=== PATIENT | male | born 1950 | race Caucasian/White ===

== ENCOUNTER → 2023-09-09 | Day surgery (SDC) | payer MEDICARE, OTHER ==
[~2023-09-09] MED LIST: Lidocaine 1% PF 5 ML VIAL ONE; Sodium Bicarbonate 0.5 MEQ/ML SDV 10 ML ONE; fentaNYL 50 mcg/mL 1 mL Vial ONE
[2023-09-09 09:04] LABS: #Basophils 0.1 thou/uL (0.0-0.2); #Eosinphils 0.3 thou/uL (0.0-0.7); #Monocytes 0.6 thou/uL (0.11-0.59); #Neutrophils 3.5 thou/uL (1.40-6.50); %Basophils 0.8 % (0.0-1.0); %Eosinophils 5.5 % (0.0-10.0); %Monocytes 10.1 % (0.0-10.0); %Neutrophils 57.3 % (42.0-75.0); Hematocrit 40.2 % (42.0-52.0); Mean Corpuscular HGB CONC 32.3 g/dL (32.0-36.0); Mean Corpuscular Hemoglobin 32.1 pg (27.0-31.0); Mean Corpuscular Volume 99.3 fl (78.0-98.0); Mean Platelet Volume 10.4 fL (7.4-10.4); Platelet Count 145 10x3/uL (130-400); RBC Distribution Width 13.5 % (11.5-14.5); Red Blood Cell (RBC) Count 4.05 mill/uL (4.70-6.10)
[2023-09-09 09:37] LABS: INR-International Normal Ratio 1.1; Prothrombin Time 14.2 sec (12.0-14.7)
[2023-09-09 09:38] LABS: PTT 27.1 sec (22.9-36.1)
== END ==
LOC: CT 08:22
PROVIDERS: ATTEND Internal Medicine Hematology & Oncology
PROC: 07DR3ZX Extraction of Iliac Bone Marrow, Percutaneous Approach, Diagnostic (ICD-10-PCS; principal; 2023-09-09)
DX: C90.00 Multiple myeloma not having achieved remission (principal); E11.9 Type 2 diabetes mellitus without complications; G20.A1 Parkinson's disease without dyskinesia, without mention of fluctuations; M19.90 Unspecified osteoarthritis, unspecified site; F41.9 Anxiety disorder, unspecified; F32.A Depression, unspecified; E07.9 Disorder of thyroid, unspecified; Z86.73 Personal history of transient ischemic attack (TIA), and cerebral infarction without residual deficits; Z98.890 Other specified postprocedural states; Z88.8 Allergy status to other drugs, medicaments and biological substances; Z79.899 Other long term (current) drug therapy; Z79.4 Long term (current) use of insulin
CPT/HCPCS: 20225; 77012; 85025; 85097; 85610; 85730; J3010; 88184; 88185; 88189; 88237; 88264; 88280; 88305; 88311; 88313; 88341; 88342; 88365

== ENCOUNTER → 2023-09-11 | Outpatient (CLI) | payer MEDICARE, OTHER | LOC: PET 10:15 | PROVIDERS: ATTEND Internal Medicine Hematology & Oncology | DX: C90.00 Multiple myeloma not having achieved remission (principal) | CPT/HCPCS: 78816; A9552 ==

== ENCOUNTER 2024-08-16 17:34 | Inpatient (IN) | payer MEDICARE, OTHER ==
[2024-08-16 18:21] LABS: #Basophils 0.03 10x3/uL (0.0-0.2); %Basophils 0.2 % (0.0-1.0); %Eosinophils 0.6 % (0.0-10.0); %Lymphocytes 7.8 % (21.0-51.0); %Monocytes 9.6 % (0.0-10.0); %Neutrophils 81.1 % (42.0-75.0); Hematocrit 34.8 % (42.0-52.0); Hemoglobin 11.7 g/dL (14.0-18.0); Mean Corpuscular HGB CONC 33.6 g/dL (32.0-36.0); Mean Corpuscular Hemoglobin 31.5 pg (27.0-31.0); Mean Corpuscular Volume 93.5 fL (78.0-98.0); Mean Platelet Volume 10.6 fL (7.4-10.4); Platelet Count 133 10x3/uL (130-400); Red Blood Cell (RBC) Count 3.72 mill/uL (4.70-6.10)
[2024-08-16] MEDS ORDERED: Acetaminophen 500 MG TAB ONE (18:29)
[2024-08-16 18:31] LABS: ALT (SGPT) 13 U/L (8-55); AST (SGOT) 11 U/L (5-34); Albumin 2.5 g/dL (3.4-4.8); Alkaline Phosphatase 44 U/L (40-110); Anion Gap 16 mmol/L (10-20); BUN (Urea Nitrogen) 29 mg/dL (8.4-25.7); Bilirubin, Total 0.6 mg/dL (0.2-1.2); Calc. Creatinine Clearance 0 mL/min (70-130); Calcium 9.1 mg/dL (7.8-10.44); Carbon Dioxide 22 mmol/L (23-31); Chloride 101 mmol/L (98-107); Estimated GFR 60; Globulin 7.1 g/dL (2.4-3.5); Glucose 225 mg/dL (83-110); Potassium 4.1 mmol/L (3.5-5.1); Protein, Total 9.6 g/dL (5.8-8.1); Sodium 135 mmol/L (136-145)
[2024-08-16 18:37] LABS: Troponin I 0.027 ng/mL (< 0.028)
[2024-08-16 22:37] LABS: Bacteria/HPF Rare-Few HPF (None Seen); Bilirubin Negative (Negative); Blood, Urine 2+ (Negative); CAUTI Indications for Culture Dysuria,urgency,freq; Clarity Turbid (Clear); Glucose, Urine (Dipstick) Greater than 1000 mg/dL (Negative); Ketone, Urine Negative (Negative); Leukocyte 250 Leu/uL (Negative); Nitrite 2+ (Negative); Protein, Urine (Dipstick) 30 mg/dL (Neg-Trace); Specific Gravity, Urine 1.033 (1.002-1.036); Squamous Epithelial 0-3 HPF (0-3); Urobilinogen Normal mg/dL (Less than 2); WBC/HPF Greater than 50 HPF (0-3); pH, Urine 5.5 (5.0-9.0)
[2024-08-16 22:37] LABS: Troponin I 0.022 ng/mL (< 0.028)
[2024-08-16 22:40] LABS: Urine Culture Reflex Yes Yes
[2024-08-16] MEDS ORDERED: cefTRIAXone (ROCEPHIN) 2 GM VIAL ONE (22:46)
[2024-08-16] MEDS ORDERED: Sodium Chloride 0.9% 100 ML ONE (22:47)
[2024-08-16 23:43] VITALS: BMI 30.6
[2024-08-17] MEDS ORDERED: Ondansetron ODT 4 MG TAB PO PRN (01:08)
[2024-08-17] MEDS ORDERED: Glucagon 1 MG/ML KIT IM PRN (01:24)
[2024-08-17] MEDS ORDERED: Dextrose 50% Abboject 50 ML SYRINGE SLOW IVP PRN (01:24)
[2024-08-17] MEDS ORDERED: Dextrose 5% in Water 1,000 ML IV PRN (01:24)
[2024-08-17] MEDS: Lactated Ringer's 1,000 ML IV SCH (01:51)
[2024-08-17 05:48] LABS: Anion Gap 14 mmol/L (10-20); BUN (Urea Nitrogen) 23 mg/dL (8.4-25.7); Calc. Creatinine Clearance 98 mL/min (70-130); Calcium 8.9 mg/dL (7.8-10.44); Carbon Dioxide 23 mmol/L (23-31); Chloride 106 mmol/L (98-107); Estimated GFR 89; Glucose 113 mg/dL (83-110); Potassium 3.7 mmol/L (3.5-5.1); Sodium 139 mmol/L (136-145)
[2024-08-17 05:49] LABS: #Basophils 0.03 10x3/uL (0.0-0.2); %Basophils 0.3 % (0.0-1.0); %Eosinophils 1.7 % (0.0-10.0); %Lymphocytes 8.1 % (21.0-51.0); %Monocytes 8.1 % (0.0-10.0); %Neutrophils 81.2 % (42.0-75.0); Hematocrit 35.5 % (42.0-52.0); Hemoglobin 11.6 g/dL (14.0-18.0); Mean Corpuscular HGB CONC 32.7 g/dL (32.0-36.0); Mean Corpuscular Hemoglobin 30.9 pg (27.0-31.0); Mean Corpuscular Volume 94.4 fL (78.0-98.0); Mean Platelet Volume 10.9 fL (7.4-10.4); Platelet Count 117 10x3/uL (130-400); Red Blood Cell (RBC) Count 3.76 mill/uL (4.70-6.10)
[2024-08-17] MEDS: Levothyroxine Sodium 100 MCG TAB PO SCH (06:20)
[2024-08-17] MEDS: Acetaminophen 325 MG TAB PO PRN (06:20)
[2024-08-17 06:39] LABS: Band 8 % (5-11); Eosinophils 1 % (0-10); Lymphocytes 5 % (21-51); Macrocytosis SLIGHT = 6-15 cells HPF (0-5); Monocytes 4 % (0-10); Neutrophil 82 % (42-75); Platelet Adequacy Comment Platelets Decreased; Polychromasia SLIGHT = 2-3 cells HPF (0-2); Smudge Cells 5.9 %
[2024-08-17] MEDS: Enoxaparin 40 MG (0.4 mL) SYRINGE SC SCH (09:10)
[2024-08-17] MEDS: Isosorbide Mononitrate 30 MG ER.TAB PO SCH (09:10)
[2024-08-17] MEDS: Insulin Glargine 30 UNITS/0.3 ML VIAL SC SCH (09:10)
[2024-08-17] MEDS: Tamsulosin HCl 0.4 MG CAP PO SCH (09:10)
[2024-08-17] MEDS: Clopidogrel Bisulfate 75 MG TAB PO SCH (09:10)
[2024-08-17] MEDS: Carvedilol 6.25 MG TAB PO SCH (09:10)
[2024-08-17] MEDS: FLUoxetine HCl 20 MG CAP PO SCH (21:29)
[2024-08-17] MEDS: Rosuvastatin 20 MG TAB PO SCH (21:29)
[2024-08-17] MEDS: cefTRIAXone\\ROCEPHIN 2 GM in Sodium Chloride 0.9% 100 ML IVPB SCH (21:30)
[2024-08-17] MEDS: Insulin Lispro 100 UNIT/ML 10 ML VIAL SC PRN (21:31)
[2024-08-18 07:04] LABS: #Basophils 0.03 10x3/uL (0.0-0.2); %Basophils 0.5 % (0.0-1.0); %Eosinophils 1.1 % (0.0-10.0); %Lymphocytes 11.3 % (21.0-51.0); %Monocytes 14.2 % (0.0-10.0); %Neutrophils 71.8 % (42.0-75.0); Hemoglobin 11.3 g/dL (14.0-18.0); Mean Corpuscular HGB CONC 33.2 g/dL (32.0-36.0); Mean Corpuscular Hemoglobin 30.5 pg (27.0-31.0); Mean Corpuscular Volume 91.6 fL (78.0-98.0); Platelet Count 120 10x3/uL (130-400); Red Blood Cell (RBC) Count 3.71 mill/uL (4.70-6.10)
[2024-08-18 07:12] LABS: ALT (SGPT) 14 U/L (8-55); AST (SGOT) 15 U/L (5-34); Albumin 2.4 g/dL (3.4-4.8); Alkaline Phosphatase 40 U/L (40-110); Anion Gap 17 mmol/L (10-20); BUN (Urea Nitrogen) 15 mg/dL (8.4-25.7); Bilirubin, Total 0.4 mg/dL (0.2-1.2); Calc. Creatinine Clearance 117 mL/min (70-130); Calcium 8.8 mg/dL (7.8-10.44); Carbon Dioxide 23 mmol/L (23-31); Chloride 103 mmol/L (98-107); Estimated GFR 93; Globulin 7.2 g/dL (2.4-3.5); Glucose 84 mg/dL (83-110); Potassium 3.8 mmol/L (3.5-5.1); Protein, Total 9.6 g/dL (5.8-8.1); Sodium 139 mmol/L (136-145)
[2024-08-19] MEDS ORDERED: Sodium Chloride 0.65% Nasal 44 ML BOT EA NARE PRN (01:45)
[2024-08-19 08:30] LABS: #Basophils Less than 0.03 10x3/uL (0.0-0.2); %Basophils 0.2 % (0.0-1.0); %Eosinophils 1.1 % (0.0-10.0); %Lymphocytes 8.9 % (21.0-51.0); %Monocytes 11.5 % (0.0-10.0); %Neutrophils 76.6 % (42.0-75.0); Hematocrit 34.6 % (42.0-52.0); Hemoglobin 11.4 g/dL (14.0-18.0); Mean Corpuscular HGB CONC 33.2 g/dL (32.0-36.0); Mean Corpuscular Hemoglobin 30.2 pg (27.0-31.0); Mean Corpuscular Volume 90.8 fL (78.0-98.0); Mean Platelet Volume 10.2 fL (7.4-10.4); Platelet Count 131 10x3/uL (130-400); RBC Distribution Width 13.8 % (11.5-14.5); Red Blood Cell (RBC) Count 3.71 mill/uL (4.70-6.10)
[2024-08-19 08:37] LABS: ALT (SGPT) 15 U/L (8-55); AST (SGOT) 17 U/L (5-34); Albumin 2.3 g/dL (3.4-4.8); Alkaline Phosphatase 43 U/L (40-110); Anion Gap 14 mmol/L (10-20); BUN (Urea Nitrogen) 18 mg/dL (8.4-25.7); Bilirubin, Total 0.3 mg/dL (0.2-1.2); Calc. Creatinine Clearance 111 mL/min (70-130); Calcium 8.8 mg/dL (7.8-10.44); Carbon Dioxide 23 mmol/L (23-31); Chloride 102 mmol/L (98-107); Estimated GFR 91; Globulin 7.5 g/dL (2.4-3.5); Glucose 167 mg/dL (83-110); Potassium 3.4 mmol/L (3.5-5.1); Protein, Total 9.8 g/dL (5.8-8.1); Sodium 136 mmol/L (136-145)
[2024-08-19] MEDS: Saccharomyces boulardii 250 MG CAP PO SCH (11:55)
[2024-08-20 04:28] LABS: #Basophils Less than 0.03 10x3/uL (0.0-0.2); %Basophils 0.4 % (0.0-1.0); %Eosinophils 2.6 % (0.0-10.0); %Lymphocytes 16.7 % (21.0-51.0); %Monocytes 16.9 % (0.0-10.0); Hematocrit 33.4 % (42.0-52.0); Hemoglobin 10.9 g/dL (14.0-18.0); Mean Corpuscular HGB CONC 32.6 g/dL (32.0-36.0); Mean Corpuscular Hemoglobin 30.4 pg (27.0-31.0); Mean Platelet Volume 10.5 fL (7.4-10.4); Platelet Count 135 10x3/uL (130-400); RBC Distribution Width 13.8 % (11.5-14.5); Red Blood Cell (RBC) Count 3.59 mill/uL (4.70-6.10)
[2024-08-20 05:02] LABS: ALT (SGPT) 19 U/L (8-55); AST (SGOT) 19 U/L (5-34); Albumin 2.1 g/dL (3.4-4.8); Alkaline Phosphatase 37 U/L (40-110); Anion Gap 13 mmol/L (10-20); BUN (Urea Nitrogen) 21 mg/dL (8.4-25.7); Bilirubin, Total 0.2 mg/dL (0.2-1.2); Calc. Creatinine Clearance 104 mL/min (70-130); Calcium 8.6 mg/dL (7.8-10.44); Carbon Dioxide 26 mmol/L (23-31); Chloride 101 mmol/L (98-107); Estimated GFR 89; Globulin 7.1 g/dL (2.4-3.5); Glucose 132 mg/dL (83-110); Potassium 3.4 mmol/L (3.5-5.1); Protein, Total 9.2 g/dL (5.8-8.1); Sodium 137 mmol/L (136-145)
[2024-08-20] MEDS: Potassium Chloride 20 MEQ TAB PO SCH (08:59)
[2024-08-20 11:54] VITALS: TEMP 98.3
[2024-08-20 13:33] VITALS: BP 147/72
== END 2024-08-20 14:12 | DRG 841 ==
LOC: ERS 17:34 → 2SE 21:47 → OBSVTOIN 08-17 16:11
PROVIDERS: ADMIT Family Medicine; ATTEND Family Medicine
DX: C90.00 Multiple myeloma not having achieved remission (principal); I50.22 Chronic systolic (congestive) heart failure; N39.0 Urinary tract infection, site not specified; N17.9 Acute kidney failure, unspecified; J06.9 Acute upper respiratory infection, unspecified; I25.10 Atherosclerotic heart disease of native coronary artery without angina pectoris; I11.0 Hypertensive heart disease with heart failure; E78.5 Hyperlipidemia, unspecified; E03.9 Hypothyroidism, unspecified; G47.33 Obstructive sleep apnea (adult) (pediatric); E11.9 Type 2 diabetes mellitus without complications; I25.2 Old myocardial infarction; Z95.0 Presence of cardiac pacemaker; D64.9 Anemia, unspecified; Z88.1 Allergy status to other antibiotic agents; Z79.82 Long term (current) use of aspirin; Z79.899 Other long term (current) drug therapy
CPT/HCPCS: 36415; 36416; 71045; 80048; 80053; 81001; 83605; 83735; 83880; 84145; 84443; 84484; 85025; 87040; 87077; 87086; 87186; 87428; 93005; 96372; 96374; G0378; J0696; J1650; J1815; J7120